=== PATIENT | female | born 1990 | race Caucasian/White ===

== ENCOUNTER 2016-04-07 12:49 | Emergency (ER) | payer MEDICAID ==
[~2016-04-07] VITALS: Ht 165.1 cm; Wt 78.0 kg
[2016-04-07 12:57] VITALS: BP 147/98; PULSE 77; RESP 16; TEMP 97.4; O2SAT 98
--- NOTE | 2016-04-07 15:15 | NUR ---
Patient was called 3 timesto bring back to ER bed. Unable to locate pt. Pt is presumed to have left without being seen.
== END 2016-04-07 15:15 | disposition left against medical advice (07) ==
LOC: SED 12:49
DX: M54.2 Cervicalgia (principal); M25.512 Pain in left shoulder; R07.9 Chest pain, unspecified; Z53.21 Procedure and treatment not carried out due to patient leaving prior to being seen by health care provider; V89.2XXA Person injured in unspecified motor-vehicle accident, traffic, initial encounter; Y93.89 Activity, other specified; Y99.8 Other external cause status; Y92.89 Other specified places as the place of occurrence of the external cause

== ENCOUNTER 2016-04-08 06:35 | Emergency (ER) | payer MEDICAID ==
[~2016-04-08] VITALS: Ht 165.1 cm; Wt 78.0 kg
--- NOTE | 2016-04-08 06:50 | NUR ---
Patient to ER bed 04 to gown for evaluation. Side rails up. Report given to Trent.
[2016-04-08 06:54] VITALS: BP 116/78; PULSE 70; RESP 16; TEMP 98.4; O2SAT 98
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
[2016-04-08] MEDS ORDERED: KETOROLAC TROMETHAMINE 30 MG VIAL ONE (06:58)
[2016-04-08] MEDS ORDERED: KETOROLAC TROMETHAMINE 60 MG/2 ML VIAL IM ONE (07:00)
--- NOTE | 2016-04-08 07:00 | NUR ---
ER at bedside examining patient.
[2016-04-08 07:35] VITALS: BP 116/78; PULSE 70; RESP 16; TEMP 98.4; O2SAT 98
--- NOTE | 2016-04-08 07:35 | NUR ---
Patient given written and verbal discharge instructions and verbalizes understanding. ER MD discussed with patient the results and treatment provided. Patient in stable condition. ID arm band removed. Rx of MOTRIN 600 MG given. Patient educated on pain management and to follow up with PMD. Pain Scale 0/10. Opportunity for questions provided and answered.
== END 2016-04-08 07:35 | disposition home or self-care (01) ==
LOC: SED 06:35
DX: S16.1XXA Strain of muscle, fascia and tendon at neck level, initial encounter (principal); V89.2XXA Person injured in unspecified motor-vehicle accident, traffic, initial encounter; Y93.89 Activity, other specified; Y92.89 Other specified places as the place of occurrence of the external cause; Y99.8 Other external cause status
CPT/HCPCS: 72040; 96372; 99284; J1885

== ENCOUNTER 2016-05-30 14:55 | Emergency (ER) | payer MEDICAID ==
[~2016-05-30] VITALS: Ht 167.6 cm; Wt 81.6 kg
[2016-05-30 15:07] VITALS: BP_SYST 141
--- NOTE | 2016-05-30 15:10 | NUR ---
Pt placed to ER bed 08 and to gown. Pt states that she has been having irregular vaginal bleeding for the past 6 months that is exacerbated by exercise. Pt states that she does Cross-fit. Pt states that bleeding has increased over the past 2 days. Denies c/o pain or discomfort.
--- NOTE | 2016-05-30 15:35 | NUR ---
Dr. Raymond at bedside to perform Vaginal exam. Socrates RN accompanies as wood shop teacher.
[2016-05-30 15:37] LABS: BASOPHILS # (AUTO) 0.1 K/uL (0.0-0.2); BASOPHILS % (AUTO) 0.7 % (0.0-2.0); EOSINOPHILS # (AUTO) 0.2 K/uL (0.0-0.4); EOSINOPHILS % (AUTO) 2.5 % (0.0-4.0); HEMATOCRIT 39.9 % (36-48); HEMOGLOBIN 13.4 g/dL (12.0-16.0); LYMPHOCYTES # (AUTO) 1.9 K/uL (1.0-5.5); LYMPHOCYTES % (AUTO) 26.2 % (20.5-51.5); MEAN CORPUSCULAR HEMOGLOBIN 28 pg (27-31); MEAN CORPUSCULAR HGB CONC 34 % (32-36); MEAN CORPUSCULAR VOLUME 83 fL (79.0-98.0); MONOCYTES # (AUTO) 0.3 K/uL (0.0-1.0); MONOCYTES % (AUTO) 3.6 % (1.7-9.3); NEUTROPHILS # (AUTO) 4.7 K/uL (1.8-7.7); PLATELET COUNT (AUTO) 304 K/uL (130-430); RED BLOOD CELL COUNT(AUTO) 4.78 MIL/uL (4.2-6.2); RED CELL DISTRIBUTION WIDTH 13.6 % (9.0-15.0); WHITE BLOOD COUNT (AUTO) 7.2 K/uL (4.8-10.8)
[2016-05-30 15:43] LABS: CALCIUM 8.7 mg/dL (8.4-11.0); CREATININE 0.76 mg/dL (0.55-1.30); POTASSIUM 3.5 mmol/L (3.5-5.1)
[2016-05-30 15:44] LABS: PROTHROMBIN TIME 10.5 SECS (9.5-12.5)
[2016-05-30 15:54] LABS: ALBUMIN 4.1 g/dL (3.4-4.8); TOTAL BILIRUBIN 0.4 mg/dL (0.0-1.0); TOTAL PROTEIN, SERUM 8.1 g/dL (6.4-8.3)
--- NOTE | 2016-05-30 16:00 | NUR ---
No needs verbalized at this time.
[2016-05-30] MEDS ORDERED: CEFIXIME 400 MG PO ONE (16:30)
[2016-05-30 16:55] LABS: BILIRUBIN,URINE NEGATIVE (NEGATIVE); BLOOD, URINE 3+ (NEGATIVE); CLARITY/URINE CLEAR (CLEAR); GLUCOSE,URINE NEGATIVE (NEGATIVE); KETONES,URINE NEGATIVE (NEGATIVE); LEUKOCYTE ESTERASE ,URINE NEGATIVE (NEGATIVE); NITRITE, URINE NEGATIVE (NEGATIVE); PH,URINE 6.5 (5.0-8.0); PROTEIN URINE NEGATIVE (NEGATIVE); UROBILINOGEN,URINE 0.2 (0.2-1.0)
[2016-05-30 17:02] LABS: COLOR,URINE STRAW (YELLOW)
[2016-05-30 17:03] LABS: BACTERIA,URINE FEW /HPF (None Seen); MUCUS,URINE None Seen /LPF (None Seen); RBC,URINE 0-3 /HPF (0-3); WBC,URINE NONE SEEN /HPF (0-3)
[2016-05-30 17:28] VITALS: BP_SYST 126
--- NOTE | 2016-05-30 17:28 | NUR ---
Patient given written and verbal discharge instructions and verbalizes understanding. ER MD discussed with patient the results and treatment provided. Given copies of tests performed in ER. Patient in stable condition. ID arm band removed. Rx of Suprax given. Patient educated on pain management and to follow up with PMD. Pain Scale 0/10. Opportunity for questions provided and answered.
[2016-06-02 23:10] LABS: CHLAMYDIA TRACHOMATIS NAA Negative (Negative); NEISSERIA GONORRHOEAE NAA Negative (Negative)
== END 2016-05-30 17:28 | disposition home or self-care (01) ==
LOC: SED 14:55
DX: N72 Inflammatory disease of cervix uteri (principal)
CPT/HCPCS: 36415; 76830-TC; 76857; 80053; 81000-TC; 84702-TC; 85025; 85610-TC; 85730-TC; 87491; 87591; 99285